=== PATIENT | female | born 1955 | race Caucasian/White ===

== ENCOUNTER → 2018-01-24 12:50 | Outpatient (CLI) | payer BC, SELFPAY ==
--- NOTE | 2018-01-24 12:54 | BI_ITS ---
MAMMOGRAPHY - BILATERAL SCREENING REASON FOR EXAM: Female, 62 years old. Routine annual screening examination. PERTINENT HISTORY: Sister with breast cancer. Aunt with breast cancer. TECHNIQUE: Digital bilateral breast jose juan (3D mammographic acquisition) in the CC and MLO projections. 2-D mediolateral oblique (MLO) and craniocaudad (CC) views of both breasts were obtained. CAD: Full Field Digital Mammography with Computer Added Detection was performed. COMPARISON: Comparison is made with prior study dated January 13, 2017 and January 05, 2016. FINDINGS: Breast Composition: The breasts are almost entirely fatty. There are no dominant masses or suspicious calcifications. No other significant abnormalities are identified. There has been no significant change since the prior study. BI/SCREENING MAMM (CAD), BILAT IMPRESSION: Stable bilateral screening mammogram. Yearly follow-up mammogram recommended. (A) ASSESSMENT CATEGORY: BIRADS Category 1: Negative. A letter regarding these results will be sent to the patient by the facility within 30 days. Approximately 10% of breast cancers are not detected by mammography. A normal mammogram should not delay biopsy of a clinically suspicious abnormality. [id number] Electronically Signed: Maverick Doe MD at 16:07 EDT Tel [phone], Service support ,
== END ==
PROVIDERS: Family Provider Internal Medicine; PCP Internal Medicine; Visit Provider Nurse Practitioner Primary Care
DX: Z12.31 Encounter for screening mammogram for malignant neoplasm of breast (principal)
CPT/HCPCS: 77063; 77067

== ENCOUNTER → 2018-09-01 08:51 | Outpatient (CLI) | payer BC, SELFPAY ==
--- NOTE | 2018-09-01 09:15 | MRI_ITS ---
STUDY: MRI BRAIN AND ORBITS WITH AND WITHOUT CONTRAST REASON FOR EXAM: Female, 62 years old. Vision changes and nystagmus TECHNIQUE: Standardized fat and water weighted pulse sequences were obtained in all 3 orthogonal planes, pre-and post contrast administration. 20 IV Dotarem was administered for the contrast portion of the examination. COMPARISON: None. FINDINGS: Right lens replacement. Normal bilateral optic nerve sheath complexes and optic nerves. Normal bilateral intraconal and extraconal spaces. Normal bilateral extraocular muscles. Normal optic chiasm and post-chiasmatic tracts. Normal sella turcica, pituitary gland, infundibular stalk, and hypothalamus. Normal bilateral cavernous sinuses. Normal tectal plate and pineal gland. Normal flow voids within the major intracranial circulation suggesting patency by spin echo criteria. Normal size of the ventricles and extra-axial spaces for the patient's age. There are multiple white matter hyperintensities, distributed throughout the deep white matter tracts of the cerebral hemispheres, consistent with moderate chronic white matter ischemic changes. Normal bilateral basal ganglia. Normal thalami. There is no extra-axial fluid accumulation. Normal midbrain, fanny and medulla. 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 Normal basal cisterns. IMPRESSION: No evidence of acute intraorbital pathology. No evidence of acute infarct or hemorrhage. Mild microangiopathic white matter disease. Electronically Signed: Terry Sullivan MD at 15:24 EDT Tel , Service support , STUDY: MRI BRAIN AND ORBITS WITH AND WITHOUT CONTRAST REASON FOR EXAM: Female, 62 years old. Vision changes and nystagmus TECHNIQUE: Standardized fat and water weighted pulse sequences were obtained in all 3 orthogonal planes, pre-and post contrast administration. 20 IV Dotarem was administered for the contrast portion of the examination. COMPARISON: None. FINDINGS: Right lens replacement. Normal bilateral optic nerve sheath complexes and optic nerves. Normal bilateral intraconal and extraconal spaces. Normal bilateral extraocular muscles. Normal optic chiasm and post-chiasmatic tracts. Normal sella turcica, pituitary gland, infundibular stalk, and hypothalamus. Normal bilateral cavernous sinuses. Normal tectal plate and pineal gland. Normal flow voids within the major intracranial circulation suggesting patency by spin echo criteria. Normal size of the ventricles and extra-axial spaces for the patient's age. There are multiple white matter hyperintensities, distributed throughout the deep white matter tracts of the cerebral hemispheres, consistent with moderate chronic white matter ischemic changes. Normal bilateral basal ganglia. Normal thalami. There is no extra-axial fluid accumulation. Normal midbrain, fanny and medulla. 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 Normal basal cisterns. MRI/Brain W/WO Contrast
[2018-09-01 09:25] LABS: CREATININE FINGERSTICK 1.2 mg/dL (0.55-1.02)
== END ==
PROVIDERS: Family Provider Internal Medicine; PCP Internal Medicine; Referring Provider Ophthalmology; Visit Provider Ophthalmology
DX: H55.00 Unspecified nystagmus (principal); H53.413 Scotoma involving central area, bilateral
CPT/HCPCS: 70553; A9575

== ENCOUNTER → 2018-11-21 06:32 | Outpatient (CLI) | payer BC, SELFPAY ==
--- NOTE | 2018-11-21 06:44 | MRI_ITS ---
STUDY: MRI ABDOMEN WITHOUT CONTRAST REASON FOR EXAM: Female, 62 years old. Follow-up ultrasound. Prior ultrasound imaging of 12/31/2014 revealed fatty infiltration of the liver and gallstones. Signs and symptoms or not reported. Prior ultrasound of 11/07/2018, suspected hypoechoic mass of the pancreatic tail worrisome for neoplasm. TECHNIQUE: Standardized fat and water weighted pulse sequences were obtained in all 3 orthogonal planes. MRCP with 3-D volume rendered reformatted images. COMPARISON: Ultrasound abdomen 11/07/2018, 12/31/2014. FINDINGS: Body wall soft tissues: No acute process. Chest: Limited evaluation, grossly clear lungs, no cardiomegaly, nondilated aorta and central pulmonary arteries. Hepatobiliary: Hepatomegaly, craniocaudal right liver 21.7 cm. On opposed phase imaging there is diffuse signal dropout throughout the liver consistent with hepatic steatosis. The gallbladder is surgically absent. Nondilated intrahepatic and extra hepatic biliary tree. Slender tapering of the common bile duct in the head of the pancreas to the sphincter without choledocholithiasis. The pancreatic duct joins the common bile duct at the major papilla, normal branching anatomy without pancreas divisum. Pancreas: Moderate fatty atrophy. No ductal ectasia. At the tip of the pancreatic tail, proximal to the splenic hilum, there is an ill-defined oval soft tissue focus, not cystic with a greatest dimension of 15 mm. Signal characteristics are similar to that of the pancreatic parenchyma. The absence of IV contrast limits further detail. Spleen: Normal. Splenule interposed between the medial margin of the spleen and the left adrenal gland. Adrenal glands: Normal. Kidneys: Normal bilateral kidneys, collecting systems, proximal ureters. Retroperitoneum: No mass or lymphadenopathy. Stomach: Normal. Small bowel and mesentery: Normal. Large bowel: Evaluated portions exhibit no acute process. Osseous structures: Mild lumbar levoscoliosis, multilevel lumbar degenerative disc disease most notable at L4-L5. Limited characterization. MRI/Abdomen without Contrast IMPRESSION: 1. Hepatic steatosis with hepatomegaly. 2. Benign splenule. 3. Prominent pancreatic atrophy. Ill-defined soft tissue focus at the tip of the pancreatic tail with a greatest dimension of 1.5 cm, adjacent to the splenic hilum. Differential considerations include normal pancreatic tissue, versus a small solid mass. The absence of IV contrast limits detail. The absence of diffusion-weighted imaging limits detail. A follow-up CT pancreas without and with IV contrast is suggested. Electronically Signed: aDvid Lane MD at 12:15 EDT Tel , Service support ,
== END ==
PROVIDERS: Family Provider Internal Medicine; PCP Internal Medicine; Referring Provider Internal Medicine; Visit Provider Internal Medicine
DX: K86.9 Disease of pancreas, unspecified (principal)
CPT/HCPCS: 74181

== ENCOUNTER → 2018-11-30 06:45 | Outpatient (CLI) | payer BC, SELFPAY ==
--- NOTE | 2018-11-30 06:47 | CT_ITS ---
STUDY: CT ABDOMEN WITH AND WITHOUT CONTRAST REASON FOR EXAM: Female, 62 years old. Pancreatic cyst versus lesion RADIATION DOSAGE (If Supplied By Facility): CTDIvol = ( 26.99 ) mGy, DLP = ( 1925.46 ) mGycm TECHNIQUE: Transaxial images were obtained pre and post I.V. administration of 100 IV Isovue 300, and oral contrast. Sagittal and coronal images were reconstructed. Individualized dose optimization techniques were used for this CT. COMPARISON: MRI abdomen November 21, 2018 FINDINGS: The visualized lung bases are unremarkable. The visualized portions of the heart are within normal limits. There is decreased hepatic attenuation. No hepatic lesions are present. Normal gallbladder and extrahepatic biliary system. The spleen is enlarged. A splenule is present. Normal pancreas. The adrenal glands are normal. Normal right kidney. Normal left kidney. Normal visualized stomach. Normal small intestine. Normal colon. The appendix is visualized and appears normal. Normal abdominal aorta. Normal inferior vena cava. Normal retroperitoneum. Normal abdominal wall. Normal osseous structures. CT/Abdomen W/WO IV Contrast IMPRESSION: Normal-appearing pancreas, with region described on comparison MRI not demonstrating unique features with respect to the rest of the pancreas. Splenomegaly. Fatty liver. Electronically Signed: Abner Garcia, at 17:58 EDT Tel , Service support ,
[2018-11-30 07:00] LABS: CREATININE FINGERSTICK 1.1 mg/dL (0.55-1.02)
== END ==
PROVIDERS: Family Provider Internal Medicine; PCP Internal Medicine; Referring Provider Internal Medicine; Visit Provider Internal Medicine
DX: K86.2 Cyst of pancreas (principal); K86.9 Disease of pancreas, unspecified
CPT/HCPCS: 74170; Q9967

== ENCOUNTER 2019-01-16 07:13 | Day surgery (SDC) | payer BC, SELFPAY ==
--- NOTE | 2018-12-18 08:55 | HP_ITS ---
Intake Vital Signs 12/18/18 Weight: 235 lb 1 oz 12/18/18 Blood Pressure 174/74 H 12/18/18 Blood Pressure Location Rt brachial 12/18/18 Respiratory Rate 20 H 12/18/18 Pulse Rate 60 12/18/18 Pulse Ox 98 Intake Visit Reasons: change in BM, had ct/mri, cscope/egd? Chief Complaint: change in bowel Disulfurizer Tender Required: No Is patient in pain?: No Allergies No Known Allergies Allergy (Verified 12/18/18 08:23) Medications lactobacillus combination no.8 3 billion cell capsule 3,000 mmu cells PO DAILY 12/18/18 [History Confirmed 12/18/18] lithium carbonate ER 450 mg tablet,extended release 450 mg PO BID 12/18/18 [History Confirmed 12/18/18] Is last menstrual period known: No Post menopausal: Yes Patient : No PFSH Medical History Depression (Acute) Hemorrhoids (Acute) Hepatic steatosis (Acute) Surgical History History of laparoscopic cholecystectomy (Acute ~2014) Family History Mother Diabetes Hypertension Depression Sister Breast cancer Father Cancer prostate Diabetes Hypertension Grandmother Diabetes Grandfather CVA (cerebral vascular accident) HPI HPI HPI: WOLFGANG BRAY, is a 63 F who presents to the office today for HPI HPI Surgical H&P: Yes HPI: WOLFGANG BRAY, is a 63 F who presents to the office today for screening colon cancer. Towards the end of October patient was having episodes of diarrhea she was having 2-3 loose bowel movements a day. She was having no abdominal pain she was not noticing any black tarry stools or bloody stools. She had an occult blood test which was negative. She had a plethora of lab studies as well as an MRI of her pancreas and a CAT scan of her pancreas which essentially was all negative. She states now that she is moving her bowels normally and she is not having any further problems with looser stools. She has never had a colonoscopy. ROS General General: No weight change, appetite, fatigue, colon cancer, breast cancer or weakness HEENT HEENT: No difficulty swallowing, eye injury, eye surgery, swollen glands or hoarseness Endo Endocrine: No thyroid disease, diabetes mellitus, thyroid cancer, Hair loss, heat intolerance or cold intolerance Cardio Cardiovascular: No murmur, pacemaker, heart disease, atrial fibrillation, high blood pressure, heart attack, heart stent, palpitations, shortness of breat with exertion or chest pain Resp Respiratory: No shortness of breath, No sleep apnea, No cough, No COPD, No asthma, No emphysema, No wheezing Gastro Gastrointestinal: No abdominal pain, No nausea or vomiting, No diarrhea, No constipation, No blood in stool, No acid reflux, Yes hemorrhoids, No ulcers, No gallbladder problem, No black,tarry stools Isai Hematologic: No blood thinners, No blood disorders, No bleeding, No anemia, No blood clots Neuro Neurologic: No weakness Exam Const General: no acute distress, well developed, well hydrated Orientation: oriented to person, oriented to place, oriented to time [facility] Head: normocephalic, atraumatic Ears: external ears normal Mouth: moist mucous membranes Eyes Sclera: sclerae normal Pupils: normal by confrontation Neck Neck: no lymphadenopathy noted Neck mass: No Thyroid: thyroid normal, symmetrical Chest Chest palpation & inspection: normal inspection of the chest Resp Effort & Inspection: normal respiratory effort Auscultation: clear to auscultation bilaterally Percussion: percussion normal Cardio Rate: regular rate Rhythm: regular rhythm Heart Sounds: no murmurs GI Inspection: obesity Palpation: soft, no hepatosplenomegaly, no masses, nontender Rectal Exam: other Other: Rectal exam deferred. Extrem General: normal to inspection, no clubbing, cyanosis or edema Assessment & Plan Problems 1. Screening for colon cancer Z12.11 Plan I have discussed the above with the patient. I have offered the patient colonoscopy for evaluation. I have explained the risks/benefits of the procedure and described the procedure. I have discussed the risks with the patient, including but not limited to: infection, bleeding, perforation of the GI tract requiring emergency surgery, inability to complete the procedure, injury to any internal organs, complications of anesthesia, etc. - the patient understands and agrees to proceed. I have answered all the patient's questions to the patient's satisfaction and the patient has no further questions. The patient has been given instructions for the colon cleansing preparation. We will do random colon bx. Coding Level of Care Code Off vis,new,level 3 Diagnoses Screening for colon cancer Z12.11 12/18/18 0856 <Electronically signed by Yogi woods MD> Date _ Yogi Olson MD I have re-examined the patient. There are no clinical changes since date of exam.
[2019-01-16 07:35] VITALS: BP 164/75; PULSE 65; RESP 16; TEMP 37.1; O2SAT 94; BMI 37.5
[2019-01-16] MEDS: Lactated Ringers 1,000 ML 100 ML IV (07:48)
--- NOTE | 2019-01-16 08:30 | COLBX_PTH ---
PATIENT: WOLFGANG BRAY LOC: EN U#:[id number] AGE/SX: 63/F ROOM: RE01/16/[address]: Dr. Yogi Olson MD : 1955 BED: DIS: 01/16/2019 SPEC #: [id number] RECD: 01/16/19 12:27 STATUS: BONNIE MASSIEL #: [id number] DANNY: 01/16/19 08:[address]: Yogi Olson DEPT: SURGICAL PATHOLOGY RECD BY: Sole Rush ENTERED: 01/16/19 14:01 SP TYPE: COLON BX OTHR DR: Dr. Caity Anaya MD Tissues: COLON BIOPSY Procedures: Surgery Specimen Level IV HEADER OPERATION: Colonoscopy (MAC) PRE-OP DIAGNOSIS: Screening TISSUE SUBMITTED: Random colonic biopsy MICROSCOPIC DIAGNOSIS Colon, random biopsy: Fragments of colonic mucosa, no pathologic diagnosis. VASQUEZ:srinivas 01/17/19 MICROSCOPIC DESCRIPTION Slides are reviewed. GROSS DESCRIPTION Received in fixative is one container labeled with the patient's name and designated random colonic biopsy. The specimen consists of multiple irregular fragments of light andre soft tissue that in aggregate measure 2.5 x 1 x 0.1 cm. The specimen is totally submitted in one cassette. / SJ:srinivas 01/16/19 TC:4 CPT: 44767
--- NOTE | 2019-01-16 08:55 | OP.ENDO_ITS ---
01/16/2019 Caity Anaya [address] [id number] Re : Colonoscopy procedure for Khadijah Jaffe Dear Dr. Anaya This procedure was performed on Wednesday, January 16, 2019. My impressions and recommendations are as follows: Impressions : - Anal fissure found on perianal exam. - Diverticulosis in the sigmoid colon. No specimens collected. - The entire examined colon is normal. Biopsied. - The examination was otherwise normal. Recommendations : - Discharge patient to home. - Resume previous diet. - Continue present medications. - Await pathology results. - Repeat colonoscopy in 10 years for screening purposes. - Return to my office in 1 week. My findings are described in the full procedure note, which is enclosed. If I can be of further assistance, please feel free to contact me at Doctor phone number(s): , Fax: [phone], Work: . Sincerely, MD Yogi Lunsford MD 01/16/2019 8:55:25 AM This report has been signed electronically.
[2019-01-16 08:57] VITALS: BP 111/79; BP 164/75; PULSE 56; RESP 16; TEMP 36.6; O2SAT 96
[2019-01-16 09:03] VITALS: BP 124/65; BP 164/75; PULSE 67; RESP 16; O2SAT 96
[2019-01-16 09:08] VITALS: BP 141/79; BP 164/75; PULSE 61; RESP 16; O2SAT 96
[2019-01-16 09:13] VITALS: BP 121/68; BP 164/75; PULSE 60; RESP 16; TEMP 36.8; O2SAT 96
[2019-01-16 09:37] VITALS: BP 164/75
== END 2019-01-16 09:54 | disposition home or self-care (01) ==
LOC: EN 07:14 → AC 07:15
PROVIDERS: Family Provider Internal Medicine; PCP Internal Medicine; Referring Provider Internal Medicine; Visit Provider Surgery
PROC: 0DJD8ZZ Inspection of Lower Intestinal Tract, Via Natural or Artificial Opening Endoscopic (ICD-10-PCS; CPT 45378; principal; 2019-01-16 08:25)
DX: Z12.11 Encounter for screening for malignant neoplasm of colon (principal); K60.2 Anal fissure, unspecified; K57.30 Diverticulosis of large intestine without perforation or abscess without bleeding; Z79.899 Other long term (current) drug therapy; F41.9 Anxiety disorder, unspecified; I10 Essential (primary) hypertension
CPT/HCPCS: 45380; 88305; J7120; J1610

== ENCOUNTER → 2019-02-15 07:15 | Outpatient (CLI) | payer BC, SELFPAY ==
[2019-01-16 07:35] VITALS: BMI 37.5
--- NOTE | 2019-02-15 07:17 | BI_ITS ---
MAMMOGRAPHY - BILATERAL SCREENING REASON FOR EXAM: Female, 63 years old. Routine annual screening examination. PERTINENT HISTORY: Sister with breast cancer. TECHNIQUE: Digital bilateral breast kaz (3D mammographic acquisition) in the CC and MLO projections. 2-D mediolateral oblique (MLO) and craniocaudad (CC) views of both breasts were obtained. CAD: Full Field Digital Mammography with Computer Added Detection was performed. COMPARISON: Comparison is made with prior study dated January 24, 2018 and January 13, 2017. FINDINGS: Breast Composition: The breasts are almost entirely fatty. There are no dominant masses or suspicious calcifications. No other significant abnormalities are identified. There has been no significant change since the prior study. BI/SCREEN MAMM (CAD) W/KAZ BILAT IMPRESSION: Stable bilateral screening mammogram. Yearly follow-up mammogram recommended. (A) ASSESSMENT CATEGORY: BIRADS Category 1: Negative. A letter regarding these results will be sent to the patient by the facility within 30 days. Approximately 10% of breast cancers are not detected by mammography. A normal mammogram should not delay biopsy of a clinically suspicious abnormality. [id number] Electronically Signed: Maverick Doe, at 9:04 EST , Service support ,
== END ==
PROVIDERS: Family Provider Internal Medicine; PCP Internal Medicine; Referring Provider Internal Medicine; Visit Provider Internal Medicine
DX: Z12.31 Encounter for screening mammogram for malignant neoplasm of breast (principal); Z80.3 Family history of malignant neoplasm of breast
CPT/HCPCS: 77063; 77067

== ENCOUNTER → 2020-02-25 07:39 | Outpatient (CLI) | payer BC, SELFPAY ==
--- NOTE | 2020-02-25 07:44 | BI_ITS ---
MAMMOGRAPHY - BILATERAL SCREENING REASON FOR EXAM: Female, 64 years old. Routine annual screening examination. PERTINENT HISTORY: Sister with breast cancer. Aunt with breast cancer. TECHNIQUE: Digital bilateral breast kaz (3D mammographic acquisition) in the CC and MLO projections. 2-D mediolateral oblique (MLO) and craniocaudad (CC) views of both breasts were obtained. CAD: Full Field Digital Mammography with Computer Added Detection was performed. COMPARISON: Comparison is made with prior study dated 02/15/2019 and 01/24/2018. FINDINGS: Breast Composition: The breasts are almost entirely fatty. There are no dominant masses or suspicious calcifications. Stable benign-appearing bilateral axillary lymph nodes. No other significant abnormalities are identified. There has been no significant change since the prior study. BI/SCREEN MAMM (CAD) W/KAZ BILAT IMPRESSION: Stable bilateral screening mammogram. Yearly follow-up mammogram recommended. (A) ASSESSMENT CATEGORY: BIRADS Category 2: Benign. A letter regarding these results will be sent to the patient by the facility within 30 days. Approximately 10% of breast cancers are not detected by mammography. A normal mammogram should not delay biopsy of a clinically suspicious abnormality. [id number] Electronically Signed: Maverick Doe, at 9:55 EST , Service support ,
== END ==
PROVIDERS: PCP Internal Medicine; Referring Provider Nurse Practitioner Primary Care; Visit Provider Nurse Practitioner Primary Care
DX: Z12.31 Encounter for screening mammogram for malignant neoplasm of breast (principal)
CPT/HCPCS: 77063; 77067

== ENCOUNTER → 2020-03-26 10:50 | Outpatient (CLI) | payer BC, SELFPAY ==
[2020-03-26 13:14] LABS: Hematocrit 37.7 % (37-47); Hemoglobin 11.8 g/dL (12.0-15.0); Mean Corp Hgb Conc 31.3 g/dL (32-36); Mean Corpuscular Hgb 31.2 pg (27.0-32.0); Mean Corpuscular Volume 99.7 fL (81-99); Platelet Count 250 K/mm3 (150-450); RBC Distribution Width CV 12.6 % (11.6-14.6); RBC Distribution Width SD 46.3 fl (35.1-43.9); Red Blood Count 3.78 M/mm3 (4.2-5.4); White Blood Count 7.4 K/mm3 (4.4-11.0)
[2020-03-26 13:22] LABS: Albumin, Serum 3.7 g/dL (3.2-5.0); BUN 24 mg/dL (7-18); BUN/Creat Ratio 15.6 RATIO (10-20); Calcium,Total 9.5 mg/dL (8.5-10.1); Chloride 107 mmol/L (98-107); Creatinine, Serum 1.54 mg/dL (0.55-1.02); EST Glomerular Filtration Rate 36 mL/min (>60); Est Glom Filt Rate - Afr Amer 44 mL/min (>60); Glucose 123 mg/dL (74-106); Phosphorus 3.2 mg/dL (2.5-4.9); Potassium 3.8 mmol/L (3.5-5.1); Sodium Level 140 mmol/L (136-145)
[2020-03-26 13:26] LABS: PTHIN 60.8 pg/mL (18.4-80.1)
[2020-03-26 13:28] LABS: Vitamin D,25 Hydroxy 43.5 ng/mL
[2020-03-30 20:48] LABS: Vitamin D 1,25-Dihydroxy 34.7 pg/mL (19.9-79.3)
== END ==
PROVIDERS: PCP Internal Medicine; Visit Provider Internal Medicine Nephrology
DX: N18.30 Chronic kidney disease, stage 3 unspecified (principal); E83.52 Hypercalcemia
CPT/HCPCS: 36415; 80069; 82306; 82652; 83970; 85027

== ENCOUNTER → 2020-04-29 10:00 | Outpatient (CLI) | payer BC, SELFPAY ==
[2020-04-29 12:50] LABS: Albumin, Serum 3.7 g/dL (3.2-5.0); BUN 20 mg/dL (7-18); BUN/Creat Ratio 13.2 RATIO (10-20); Calcium,Total 9.9 mg/dL (8.5-10.1); Chloride 108 mmol/L (98-107); Creatinine, Serum 1.52 mg/dL (0.55-1.02); EST Glomerular Filtration Rate 37 mL/min (>60); Est Glom Filt Rate - Afr Amer 44 mL/min (>60); Glucose 103 mg/dL (74-106); Phosphorus 3.4 mg/dL (2.5-4.9); Potassium 4.1 mmol/L (3.5-5.1); Sodium Level 140 mmol/L (136-145)
== END ==
PROVIDERS: PCP Internal Medicine; Visit Provider Internal Medicine Nephrology
DX: N18.30 Chronic kidney disease, stage 3 unspecified (principal)
CPT/HCPCS: 36415; 80069

== ENCOUNTER → 2020-06-30 10:37 | Outpatient (CLI) | payer BC, SELFPAY ==
[2020-06-30 12:32] LABS: Albumin, Serum 3.8 g/dL (3.2-5.0); BUN 22 mg/dL (7-18); BUN/Creat Ratio 14.3 RATIO (10-20); Calcium,Total 10.4 mg/dL (8.5-10.1); Chloride 106 mmol/L (98-107); Creatinine, Serum 1.54 mg/dL (0.55-1.02); EST Glomerular Filtration Rate 36 mL/min (>60); Est Glom Filt Rate - Afr Amer 44 mL/min (>60); Glucose 107 mg/dL (74-106); Phosphorus 3.1 mg/dL (2.5-4.9); Potassium 3.9 mmol/L (3.5-5.1); Sodium Level 139 mmol/L (136-145)
== END ==
PROVIDERS: PCP Internal Medicine; Visit Provider Internal Medicine Nephrology
DX: N18.30 Chronic kidney disease, stage 3 unspecified (principal)
CPT/HCPCS: 36415; 80069

== ENCOUNTER → 2020-12-01 09:54 | Outpatient (CLI) | payer BC, SELFPAY ==
[2020-12-01 13:18] LABS: Albumin, Serum 3.5 g/dL (3.2-5.0); BUN 24 mg/dL (7-18); BUN/Creat Ratio 16.6 RATIO (10-20); Calcium,Total 9.7 mg/dL (8.5-10.1); Chloride 111 mmol/L (98-107); Creatinine, Serum 1.45 mg/dL (0.55-1.02); EST Glomerular Filtration Rate 39 mL/min (>60); Est Glom Filt Rate - Afr Amer 47 mL/min (>60); Glucose 160 mg/dL (74-106); Phosphorus 2.5 mg/dL (2.5-4.9); Potassium 4.1 mmol/L (3.5-5.1); Sodium Level 142 mmol/L (136-145)
[2020-12-01 13:34] LABS: PTHIN 72.6 pg/mL (18.4-80.1)
== END ==
PROVIDERS: PCP Internal Medicine; Visit Provider Internal Medicine Nephrology
DX: N18.30 Chronic kidney disease, stage 3 unspecified (principal)
CPT/HCPCS: 36415; 80069; 83970

== ENCOUNTER 2020-12-14 00:21 | Emergency (ER) | payer BC, SELFPAY ==
[2020-12-14 00:22] VITALS: BP 195/98; PULSE 82; PULSE 93; RESP 18; TEMP 36.9; O2SAT 93; BMI 37.3
[2020-12-14] MEDS: DiphenhydrAMINE 50 MG/ML Syringe 25 MG IV (01:15)
[2020-12-14 01:25] LABS: Absolute Lymphocyte Count 2.38 X10^3/uL (0.83-4.51); Absolute Neutrophil Count 6.7 X10^3/uL (2.0-7.7); Basophil# 0.06 X10^3/uL; Basophil% 0.6 % (0-1); Eosinophil# 0.26 X10^3/uL; Eosinophils% 2.6 % (0-5); Hematocrit 41.4 % (37-47); Hemoglobin 13.1 g/dL (12.0-15.0); Lymphocyte # 2.38 X10^3/ul (0.83-4.51); Mean Corp Hgb Conc 31.6 g/dL (32-36); Mean Corpuscular Hgb 32.4 pg (27.0-32.0); Mean Corpuscular Volume 102.5 fL (81-99); Mean Platelet Vol. 9.3 fl (6.2-12.0); NRBC Flagged by Analyzer 0 % (0-5); Neutrophil # 6.69 X10^3/uL (2.7-7.7); Neutrophil % 67.6 % (47-70); Platelet Count 269 K/mm3 (150-450); RBC Distribution Width CV 12.6 % (11.6-14.6); RBC Distribution Width SD 47.8 fl (35.1-43.9); Red Blood Count 4.04 M/mm3 (4.2-5.4); White Blood Count 9.9 K/mm3 (4.4-11.0)
[2020-12-14 01:47] LABS: Anion Gap 5 (5-15); BUN 25 mg/dL (7-18); BUN/Creat Ratio 17.1 RATIO (10-20); Calcium,Total 10.3 mg/dL (8.5-10.1); Chloride 107 mmol/L (98-107); Creatinine, Serum 1.46 mg/dL (0.55-1.02); EST Glomerular Filtration Rate 38 mL/min (>60); Est Glom Filt Rate - Afr Amer 46 mL/min (>60); Estimated Creatinine Clearance 34.57 ml/min; Glucose 137 mg/dL (74-106); Potassium 3.4 mmol/L (3.5-5.1); Sodium Level 141 mmol/L (136-145)
--- NOTE | 2020-12-14 02:01 | EX.ED.DYSGE1 ---
HPI History of Present Illness Chief Complaint: General Illness Informant: patient and spouse/S.O. Onset/Context/Timing Onset: Weeks Current Severity: Moderate Maximum Severity: Moderate Narrative Narrative: Patient presents with a 7-day history of insomnia. She states that she lays down to try to sleep but has not been able to sleep in 7 days. She has tried Tylenol PM as well as an [id number] sleep syrup. She tried melatonin tonight and slept for only a brief time. Patient does admit to a recent medication change. She had previously been on lithium 300 mg 3 times daily. She was changed to twice daily dosing at 450 and 300. She states she did notice a sleep changes shortly after this medication adjustment. She denies caffeine intake. [facility] Medical History Depression Hemorrhoids Hepatic steatosis Home Medications lactobacillus combination no.8 3 billion cell capsule 3,000 mmu cells PO DAILY 12/18/18 [History Last Taken 01/15/19] amlodipine 5 mg PO DAILY 12/14/20 [History Last Taken Unknown] aripiprazole [Abilify] 10 mg PO DAILY 12/14/20 [History Last Taken Unknown] lithium carbonate 300 mg PO TID 12/14/20 [History Last Taken Unknown] omeprazole 20 mg PO QODAY 12/14/20 [History Last Taken Unknown] Allergy/AdvReac Type Severity Reaction Status Date / Time No Known Allergies Allergy Verified 01/24/19 15:29 Family History Mother Diabetes Hypertension Depression Sister Breast cancer Father Cancer prostate Diabetes Hypertension Grandmother Diabetes Grandfather CVA (cerebral vascular accident) Surgical History History of colonoscopy (~01/2019) History of laparoscopic cholecystectomy (~2014) Social History Smoking Status: Former smoker ROS ROS ED Constitutional Constitutional ED: Denies chills or fever(s) Eyes Eyes: Denies change in vision ENT ENT ED: Denies sore throat Cardiovascular Cardiovascular: Denies chest pain Respiratory/Chest Respiratory/Chest: Denies cough or dyspnea Gastrointestinal Gastrointestinal: Denies abdominal pain, diarrhea, nausea or vomiting Genitourinary Genitourinary ED: Denies dysuria Musculoskeletal Musculoskeletal: Denies back pain Integumentary Denies rash Neurologic Neurologic: Denies headache(s) or weakness Allergic/Immunologic Allergic/Immunologic ED: Denies urticaria EXAM Physical Exam Const Vital Signs: 12/14/20 00:22 12/14/20 03:06 Temperature 98.4 F Temperature Source Temporal Pulse Rate 82 65 Respiratory Rate 18 18 Blood Pressure 195/98 H 136/67 H Blood Pressure Mean 130 90 Pulse Ox 93 98 Oxygen Delivery Method Room Air Room Air Positive well nourished and well developed General Appearance ED: well developed HEENT Reports normocephalic and head/scalp atraumatic Eyes PERRL and EOMs intact bilaterally Neck supple Chest Wall inspection of chest normal and palpation of chest normal Resp normal respiratory effort and clear to auscultation bilaterally Cardio regular rate and regular rhythm GI normal to inspection, nondistended, normoactive bowel sounds Palpation: soft Extremity normal to inspection Neuro oriented x3 and no sensory deficits noted Sensorium / Orientation: alert Motor Exam: strength 5/5 throughout Psych Mood & Affect: anxious Skin no rashes or lesions noted MDM MDM MDM Narrative Medical decision making narrative: Lab work including lithium level are obtained. Patient was initially given 25 mg of IV Benadryl. Lab Data Attestation: I reviewed the patient's lab results. Labs: Laboratory Results - last 24 hr 12/14/20 12/14/20 12/14/20 01:18 01:18 01:18 WBC 9.9 RBC 4.04 L Hgb 13.1 Hct 41.4 MCV 102.5 H MCH 32.4 H MCHC 31.6 L RDW Std Deviation 47.8 H RDW Coeff of Jai 12.6 Plt Count 269 MPV 9.3 Immature Gran % (Auto) 0.200 Neut % (Auto) 67.6 Lymph % (Auto) 24.0 Hooker % (Auto) 5.0 Eos % (Auto) 2.6 Baso % (Auto) 0.6 Absolute Neuts (auto) 6.7 Absolute Lymphs (auto) 2.38 Nucleated RBC % 0 Sodium 141 Potassium 3.4 L Chloride 107 Carbon Dioxide 29.0 Anion Gap 5 BUN 25 H Creatinine 1.46 H Estim Creat Clear Calc 34.57 Est GFR (MDRD) Af Amer 46 L Est GFR (MDRD) Non-Af 38 L BUN/Creatinine Ratio 17.1 Glucose 137 H Calcium 10.3 H Tobin 1.20 Treatment and Re-Evaluation Comments:: Lab work is largely unremarkable. Potassium is slightly low. Tobin is 1.2 which is typically where her lithium level is. She now tells me that she had switched back to the 3 times a day dosing on her lithium 4 days ago. Patient was given 1 mg of IV Ativan. On repeat evaluation she is sleeping comfortably. states that she slept for the last half hour. O2 sat is 94%. Patient is awoken and would prefer to go home and sleep. We will discharge her at this time with return instructions provided. Discharge Plan Triage Chief Complaint: General Illness ED Provider: Karla Schultz Dx/Rx/DC Orders Clinical Impression: Insomnia Instructions: ED Insomnia Prescriptions: No Action Adult Probiotic 3 billion cell capsule 3,000 mmu cells PO DAILY RF: 0 amlodipine 2.5 mg tablet 5 mg PO DAILY RF: 0 omeprazole 20 mg capsule,delayed release(DR/EC) 20 mg PO QODAY RF: 0 lithium carbonate 300 mg tablet 300 mg PO TID RF: 0 aripiprazole [Abilify] 10 mg tablet 10 mg PO DAILY RF: 0 Primary Care Provider: Robert Lema NP Referrals: Robert Lema NP, [facility] [Primary Care Provider] - 3-5 Days if not improving Disposition Disposition: Home, Self Care
[2020-12-14 03:06] VITALS: BP 136/67; PULSE 65; RESP 18; O2SAT 98
[2020-12-14] MEDS: LORazepam 2 MG/ML Syringe 1 MG IV (03:30)
[2020-12-14 04:12] VITALS: RESP 14
== END 2020-12-14 04:17 | disposition home or self-care (01) ==
PROVIDERS: Emergency Provider Emergency Medicine; PCP Nurse Practitioner Primary Care
DX: G47.00 Insomnia, unspecified (principal); F32.9 Major depressive disorder, single episode, unspecified; K76.0 Fatty (change of) liver, not elsewhere classified; Z79.899 Other long term (current) drug therapy; Z87.891 Personal history of nicotine dependence
CPT/HCPCS: 80048; 80178; 85025; 96374; 96375; 99283; A4216

== ENCOUNTER 2020-12-19 18:28 | Emergency (ER) | payer BC, SELFPAY ==
[2020-12-19 18:29] VITALS: BP 179/81; PULSE 78; RESP 18; TEMP 36.1; O2SAT 99; BMI 36.6
--- NOTE | 2020-12-19 20:34 | EDS_ITS ---
HPI History of Present Illness Chief Complaint: Mental Status Change Informant: patient Onset/Context/Timing Onset: Days (4-5) Context: Gradual Onset Timing: Continuous Quality: insomnia Current Severity: Severe Maximum Severity: Severe Worsened by: n/a Relieved by: Ativan IM but not tablets Associated Symptoms Associated Symptoms: none; just feels groggy and sleep deprived Narrative Narrative: Patient has had insomnia all week, and she is grasping at straws to try to get sleep. She states she was try melatonin 3 mg before coming here earlier in the week, she was given Ativan in the ER which did help her get to sleep but she only slept for several hours at home and then was unable. She has had no symptoms of alea, she has bipolar disorder and is treated for that with lithium. She had labs several days ago that showed stable chemistry panel with a lithium level that was within normal limits. Her doctor prescribed her Ativan tablets but she states it is not helping. She also increased her melatonin to 6 mg. She states she was able to take a couple of short naps but she is not able to sleep for any significant amount of time. [facility] Medical History Bipolar disorder Depression Hemorrhoids Hepatic steatosis Home Medications lactobacillus combination no.8 3 billion cell capsule 3,000 mmu cells PO DAILY 12/18/18 [History Last Taken 01/15/19] amlodipine 5 mg PO DAILY 12/14/20 [History Last Taken Unknown] lithium carbonate 300 mg PO TID 12/14/20 [History Last Taken Unknown] omeprazole 20 mg PO QODAY 12/14/20 [History Last Taken Unknown] lorazepam 1 mg PO QHS 12/19/20 [History Last Taken Unknown] melatonin 6 mg PO DAILY 12/19/20 [History Last Taken Unknown] zolpidem 5 mg PO QHS PRN #3 tab 12/19/20 [Rx Last Taken Unknown] Allergy/AdvReac Type Severity Reaction Status Date / Time No Known Allergies Allergy Verified 12/19/20 18:29 Family History Mother Diabetes Hypertension Depression Sister Breast cancer Father Cancer prostate Diabetes Hypertension Grandmother Diabetes Grandfather CVA (cerebral vascular accident) Surgical History History of colonoscopy (~01/2019) History of laparoscopic cholecystectomy (~2014) Social History Smoking Status: Former smoker ROS ROS ED Constitutional Constitutional ED: Reports other Details: Insomnia ; Denies chills or fever(s) Eyes Eyes: Denies change in vision or diplopia ENT ENT ED: Denies rhinorrhea or sore throat Cardiovascular Cardiovascular: Denies chest pain or palpitations Respiratory/Chest Respiratory/Chest: Denies cough or dyspnea Gastrointestinal Gastrointestinal: Denies abdominal pain, diarrhea, nausea or vomiting Genitourinary Genitourinary ED: Denies dysuria or hematuria Musculoskeletal Musculoskeletal: Denies back pain or neck pain Integumentary Denies abscess or rash Neurologic Neurologic: Denies headache(s), paresthesias or weakness Psychiatric Psychiatric: Denies anxiety or suicidal thoughts EXAM Physical Exam Const Vital Signs: 12/19/20 18:29 Temperature 96.9 F L Temperature Source Temporal Pulse Rate 78 Respiratory Rate 18 Blood Pressure 179/81 H Blood Pressure Mean 113 Pulse Ox 99 Oxygen Delivery Method Room Air Positive well nourished and well developed General Appearance ED: well developed and NAD HEENT Reports moist mucous membranes normocephalic and atraumatic Eyes PERRL and EOMs intact bilaterally Neck full ROM and supple Resp normal respiratory effort and clear to auscultation bilaterally Cardio regular rate, regular rhythm and no murmurs GI non-tender and non-distended Auscultation: normoactive bowel sounds Palpation: soft Back/Spine no CVA tenderness General Back: other FROM Extremity normal to inspection General Extremety ED: Negative for edema, pulses abnormal or tenderness General Extremity: Negative for edema or pulses abnormal Neuro oriented x3, CN's II-XII intact bilaterally and no sensory deficits noted Sensorium / Orientation: awake and alert Motor Exam: strength 5/5 throughout Skin no rashes or lesions noted and no wounds MDM MDM MDM Narrative Medical decision making narrative: I do not think she needs any other emergent work-up here. She was given Ativan 0.5 mg IM as well as an Ambien 5 mg, her is here to take her home and a prescription for a couple more Ambien to try at home over the weekend until she can follow-up with her doctor. She is comfortable with that plan. Discharge Plan Triage Chief Complaint: Mental Status Change ED Provider: Naif Cochran Dx/Rx/DC Orders Clinical Impression: Insomnia Instructions: ED Insomnia Prescriptions: New zolpidem 5 mg tablet 5 mg PO QHS PRN (Reason: insomnia) Qty: 3 RF: 0 No Action Adult Probiotic 3 billion cell capsule 3,000 mmu cells PO DAILY RF: 0 amlodipine 2.5 mg tablet 5 mg PO DAILY RF: 0 omeprazole 20 mg capsule,delayed release(DR/EC) 20 mg PO QODAY RF: 0 lithium carbonate 300 mg tablet 300 mg PO TID RF: 0 melatonin 3 mg Tablet 6 mg PO DAILY RF: 0 lorazepam 1 mg tablet 1 mg PO QHS RF: 0 Primary Care Provider: Care Physician,No Primary Referrals: Con Fuller MD [STAFF PHYSICIAN] - 3-5 Days Care Physician,No Primary [Primary Care Provider] - Disposition Disposition: Home, Self Care
[2020-12-19] MEDS: LORazepam 2 MG/ML Syringe 0.5 MG IM (20:43)
[2020-12-19] MEDS: Zolpidem Tartrate 5 MG Tablet PO (20:54)
== END 2020-12-19 20:55 | disposition home or self-care (01) ==
PROVIDERS: Emergency Provider Emergency Medicine
DX: G47.00 Insomnia, unspecified (principal); F31.9 Bipolar disorder, unspecified; Z79.899 Other long term (current) drug therapy; Z87.891 Personal history of nicotine dependence
CPT/HCPCS: 96374; 99283

== ENCOUNTER → 2021-02-26 09:12 | Outpatient (CLI) | payer BC, SELFPAY ==
--- NOTE | 2021-02-26 09:17 | BI_ITS ---
MAMMOGRAPHY - BILATERAL SCREENING REASON FOR EXAM: Female, 65 years old. Routine annual screening examination. PERTINENT HISTORY: Sister with breast cancer. Aunt with breast cancer. TECHNIQUE: Digital bilateral breast kaz (3D mammographic acquisition) in the CC and MLO projections. 2-D mediolateral oblique (MLO) and craniocaudad (CC) views of both breasts were obtained. CAD: Full Field Digital Mammography with Computer Added Detection was performed. COMPARISON: Comparison is made with prior study 02/25/2020 and 02/15/2019. FINDINGS: Breast Composition: The breasts are almost entirely fatty. There are no dominant masses or suspicious calcifications. Stable benign-appearing bilateral axillary lymph nodes. No other significant abnormalities are identified. There has been no significant change since the prior study. BI/SCRN MAMM (CAD)W/KAZ BILAT IMPRESSION: Stable bilateral screening mammogram. Yearly follow-up mammogram recommended. (A) ASSESSMENT CATEGORY: BIRADS Category 2: Benign. A letter regarding these results will be sent to the patient by the facility within 30 days. Approximately 10% of breast cancers are not detected by mammography. A normal mammogram should not delay biopsy of a clinically suspicious abnormality. [id number] Electronically Signed: Maverick Doe MD at 9:53 EST , Service support ,
== END ==
PROVIDERS: PCP Internal Medicine; Referring Provider Internal Medicine; Visit Provider Internal Medicine
DX: Z12.31 Encounter for screening mammogram for malignant neoplasm of breast (principal); Z80.3 Family history of malignant neoplasm of breast
CPT/HCPCS: 77063; 77067

== ENCOUNTER 2021-07-14 09:08 | Outpatient (CLI) | payer BC, SELFPAY ==
[2021-07-14 12:34] LABS: Albumin, Serum 3.6 g/dL (3.2-5.0); BUN 19 mg/dL (7-18); BUN/Creat Ratio 12.8 RATIO (10-20); Calcium,Total 9.7 mg/dL (8.5-10.1); Chloride 109 mmol/L (98-107); Creatinine, Serum 1.48 mg/dL (0.55-1.02); EST Glomerular Filtration Rate 38 mL/min (>60); Est Glom Filt Rate - Afr Amer 45 mL/min (>60); Glucose 163 mg/dL (74-106); Phosphorus 2.8 mg/dL (2.5-4.9); Potassium 3.8 mmol/L (3.5-5.1); Sodium Level 140 mmol/L (136-145)
[2021-07-14 12:55] LABS: PTHIN 62.7 pg/mL (18.4-80.1)
== END 2021-07-14 23:59 | disposition home or self-care (01) ==
LOC: POLAB3 09:09
PROVIDERS: PCP Internal Medicine; Visit Provider Internal Medicine Nephrology
DX: N18.30 Chronic kidney disease, stage 3 unspecified (principal)
CPT/HCPCS: 36415; 80069; 83970

== ENCOUNTER → 2022-03-24 | Outpatient (CLI) | payer BC, SELFPAY ==
--- NOTE | 2022-03-24 16:00 | BI_ITS ---
MAMMOGRAPHY - BILATERAL SCREENING REASON FOR EXAM: Female, 66 years old. Routine annual screening examination. PERTINENT HISTORY: Sister with breast cancer. Aunt with breast cancer. TECHNIQUE: Digital bilateral breast kaz (3D mammographic acquisition) in the CC and MLO projections. 2-D mediolateral oblique (MLO) and craniocaudad (CC) views of both breasts were obtained. CAD: Full Field Digital Mammography with Computer Added Detection was performed. COMPARISON: Comparison is made with prior study dated 02/26/2021 and 02/25/2020. FINDINGS: Breast Composition: The breasts are almost entirely fatty. There are no dominant masses or suspicious calcifications. Stable small benign-appearing bilateral axillary lymph nodes. No other significant abnormalities are identified. There has been no significant change since the prior study. BI/SCRN MAMM (CAD)W/KAZ BILAT IMPRESSION: Stable bilateral screening mammogram. Yearly follow-up mammogram recommended. (A) ASSESSMENT CATEGORY: BIRADS Category 2: Benign. A letter regarding these results will be sent to the patient by the facility within 30 days. Approximately 10% of breast cancers are not detected by mammography. A normal mammogram should not delay biopsy of a clinically suspicious abnormality. [id number] Electronically Signed: Maverick Doe MD at 12:17 EST ,
== END | disposition home or self-care (01) ==
LOC: OPBD 15:58
PROVIDERS: PCP Internal Medicine; Visit Provider Nurse Practitioner
DX: Z12.31 Encounter for screening mammogram for malignant neoplasm of breast (principal); Z80.3 Family history of malignant neoplasm of breast
CPT/HCPCS: 77063; 77067

== ENCOUNTER 2022-05-02 13:57 | Outpatient (RCR) | payer BC, SELFPAY | END 2022-05-10 23:59 | LOC: DC 13:57 | PROVIDERS: PCP Internal Medicine; Visit Provider Internal Medicine | DX: E11.22 Type 2 diabetes mellitus with diabetic chronic kidney disease (principal); N18.9 Chronic kidney disease, unspecified; Z71.3 Dietary counseling and surveillance | CPT/HCPCS: 97802 ==

== ENCOUNTER 2022-06-02 13:30 | Outpatient (RCR) | payer BC, SELFPAY | END 2022-06-07 23:59 | LOC: DC 13:30 | PROVIDERS: PCP Internal Medicine; Visit Provider Internal Medicine | DX: E11.22 Type 2 diabetes mellitus with diabetic chronic kidney disease (principal); N18.30 Chronic kidney disease, stage 3 unspecified; Z71.3 Dietary counseling and surveillance | CPT/HCPCS: 97803 ==

== ENCOUNTER → 2022-11-21 | Outpatient (CLI) | payer BC, SELFPAY ==
[2022-11-21 13:23] LABS: Albumin, Serum 3.6 g/dL (3.2-5.0); BUN 25 mg/dL (7-18); Calcium,Total 9.5 mg/dL (8.5-10.1); Chloride 110 mmol/L (98-107); Creatinine, Serum 1.67 mg/dL (0.55-1.02); EST Glomerular Filtration Rate 33 mL/min (>60); Est Glom Filt Rate - Afr Amer 39 mL/min (>60); Glucose 199 mg/dL (74-106); Phosphorus 3.6 mg/dL (2.5-4.9); Potassium 4.2 mmol/L (3.5-5.1); Sodium Level 140 mmol/L (136-145)
== END | disposition home or self-care (01) ==
LOC: POLAB3 09:38
PROVIDERS: PCP Internal Medicine; Visit Provider Internal Medicine Nephrology
DX: N18.32 Chronic kidney disease, stage 3b (principal)
CPT/HCPCS: 36415; 80069

== ENCOUNTER → 2023-04-26 | Outpatient (CLI) | payer BC, SELFPAY ==
--- NOTE | 2023-04-26 09:10 | BI_ITS ---
MAMMOGRAPHY - BILATERAL SCREENING REASON FOR EXAM: Female, 67 years old. Routine annual screening examination. PERTINENT HISTORY: Sister with breast cancer. Aunt with breast cancer. TECHNIQUE: Digital bilateral breast kaz (3D mammographic acquisition) in the CC and MLO projections. 2-D mediolateral oblique (MLO) and craniocaudad (CC) views of both breasts were obtained. CAD: Full Field Digital Mammography with Computer Added Detection was performed. COMPARISON: Comparison is made with prior study dated March 24, 2022 and February 26, 2021. FINDINGS: Breast Composition: The breasts are almost entirely fatty. There are no dominant masses or suspicious calcifications. Stable fat-containing right axillary lymph nodes. No other significant abnormalities are identified. There has been no significant change since the prior study. BI/SCRN MAMM (CAD)W/KAZ BILAT IMPRESSION: Stable bilateral screening mammogram. Yearly follow-up mammogram recommended. (A) ASSESSMENT CATEGORY: BIRADS Category 2: Benign. A letter regarding these results will be sent to the patient by the facility within 30 days. Approximately 10% of breast cancers are not detected by mammography. A normal mammogram should not delay biopsy of a clinically suspicious abnormality. [id number] Electronically Signed: Maverick Doe MD at 8:31 EST ,
== END | disposition home or self-care (01) ==
LOC: OPBI 09:09
PROVIDERS: PCP Internal Medicine; Referring Provider Nurse Practitioner; Visit Provider Nurse Practitioner
DX: Z12.31 Encounter for screening mammogram for malignant neoplasm of breast (principal); Z80.3 Family history of malignant neoplasm of breast
CPT/HCPCS: 77063; 77067

== ENCOUNTER → 2024-02-14 | Outpatient (CLI) | payer BC, SELFPAY ==
--- NOTE | 2024-02-14 12:45 | NEURO ---
NCS and/or EMG Patient Report Ordering Doctor: Rodger Urrutia DATE OF SERVICE: 02/14/24 Khadijah presents for electrodiagnostic testing of the left upper limb. She reports numbness and tingling in the left hand and forearm. Electrodiagnostic findings: Left median motor nerve demonstrates prolonged latency with reduced amplitude and reduced conduction velocity. Normal left ulnar motor response. Prolonged left median F?wave. Needle EMG testing was performed in the left upper limb. All muscles tested showed no evidence of denervation with normal motor unit action potentials. Electrodiagnostic impression: This is an abnormal study in the left upper limb. 1. Electrodiagnostic findings suggestive of left-sided median mononeuropathy. This is consistent with a severe left carpal tunnel syndrome Were 2 no electrodiagnostic evidence is noted for cervical radiculopathy. Multi Select Codes Neurology Neurology Interp Codes: 25383-99 Musc test done w/n test comp (interp) (1) and 45850-58 Nrv cndj tst 5-6 studies (interp)
== END | disposition home or self-care (01) ==
LOC: PSN 10:26
PROVIDERS: PCP Nurse Practitioner; Referring Provider Physician Assistant; Visit Provider Physician Assistant
DX: R20.2 Paresthesia of skin (principal)
CPT/HCPCS: 95886; 95909

== ENCOUNTER → 2024-05-07 | Outpatient (CLI) | payer MEDICARE, BC, SELFPAY ==
--- NOTE | 2024-05-07 07:44 | BI_ITS ---
PROCEDURE: SCRN MAMM (CAD)W/KAZ BILAT REASON FOR EXAM: F, Age 68 y/o, sister with breast cancer. Aunt with breast cancer. TECHNIQUE: Bilateral screening digital breast tomosynthesis with 2D and 3D images. Computer aided detection. COMPARISON: Prior exam(s) dating back to April 26, 2023.. FINDINGS: There are scattered areas of fibroglandular density. No suspicious masses, areas of developing architectural distortion, or suspicious calcifications. St able bilateral fat containing axillary lymph nodes. BI/SCRN MAMM (CAD)W/KAZ BILAT IMPRESSION: BI-RADS 2: BENIGN. RECOMMEND ANNUAL MAMMOGRAPHIC SCREENING. Follow-up code: Routine Follow-up The patient will be notified of the results by letter. Reading Location: [place] [id number]
== END | disposition home or self-care (01) ==
PROVIDERS: PCP Nurse Practitioner; Referring Provider Internal Medicine; Visit Provider Internal Medicine
DX: Z12.31 Encounter for screening mammogram for malignant neoplasm of breast (principal)
CPT/HCPCS: 77063; 77067

== ENCOUNTER 2024-10-28 08:01 | Emergency (ER) | payer MEDICARE, BC, SELFPAY ==
[2024-10-28 08:02] VITALS: BP 132/76; PULSE 71; RESP 16; TEMP 36.7; O2SAT 98; BMI 35.5
--- NOTE | 2024-10-28 08:32 | EDS_ITS ---
HPI HPI - GI History of Present Illness Chief Complaint: Diarrhea Informant: patient Narrative Narrative: Diarrhea nonbloody for the past month. She saw her PCP stool studies sent negative for C. difficile. She states at that time was on antibiotics 3 weeks prior for tooth infection. Since then daily diarrhea especially when she takes oral intake. Last time was yesterday when she ate scrambled eggs. She went to urgent care yesterday they did not know what to do. She was referred to gastroenterology by her PCP however appointments out. Only abdominal surgery is cholecystectomy. History of diabetes and chronic kidney disease. She has been trying to keep up with fluids. Today felt weaker. No decreased urine output. No nausea or vomiting. No fevers. No abdominal pain. [facility] Medical History Bipolar disorder Hemorrhoids Hepatic steatosis Depression Home Medications ?Medication ?Instructions ?Recorded ?Last Taken ?Type lactobacillus combination no.8 3 3,000 mmu cells PO DA MATEO 12/18/18 01/15/19 History billion cell capsule (Adult Probiotic) amlodipine 2.5 mg tablet 5 mg PO DAILY 12/14/20 Unkno wn History lithium carbonate 300 mg tablet 300 mg PO TID 12/14/20 Unknown History omeprazole 20 mg capsule,delayed 20 mg PO QODAY Unknown History release lorazepam 1 mg tablet 1 mg PO QHS 12/19/20 Unknown History melatonin 3 mg tablet 6 mg PO DAILY 12/19/20 Unkno wn History zolpidem 5 mg tablet 5 mg PO QHS PRN insomnia #3 tabs 12/19/20 Unknown Rx Allergy/AdvReac Type Severity Reaction Status Date / Time No Known Allergies Allergy Verified 10/28/24 08:04 Family History Mother Diabetes Hypertension Depression Sister Breast cancer Father Cancer prostate Diabetes Hypertension Grandmother Diabetes Grandfather CVA (cerebral vascular accident) Surgical History History of colonoscopy (~01/2019) History of laparoscopic cholecystectomy (~2014) Social History Smoking Status: Former smoker ROS ROS ED Constitutional Constitutional ED: Denies chills, fever(s) or sweats ENT ENT ED: Denies sore throat Cardiovascular Cardiovascular: Denies chest pain, leg edema, palpitations or racing heartbeat Respiratory/Chest Respiratory/Chest: Denies cough, dyspnea or dyspnea on exertion Gastrointestinal Gastrointestinal: Reports diarrhea; Denies abdominal pain, nausea or vomiting Genitourinary Genitourinary ED: Denies dysuria, hematuria or urinary frequency Musculoskeletal Musculoskeletal: Denies back pain, extremity pain or neck pain Integumentary Denies rash or wounds Neurologic Neurologic: Reports weakness; Denies headache(s) or paresthesias EXAM Physical Exam Const Vital Signs: 10/28/24 08:02 Temperature 98.1 F Temperature Source Oral Pulse Rate 71 Respiratory Rate 16 Blood Pressure 132/76 H Blood Pressure Mean 94 Pulse Ox 98 Oxygen Delivery Method Room Air Positive well nourished and well developed General Appearance ED: well developed and NAD HEENT Reports dry mucous membranes normocephalic and atraumatic Mouth ED: Yes dry mucous membranes Mouth: dry mucous membranes Eyes General Eye ED: Yes normal appearance of both eyes Neck full ROM Chest Wall Chest: Negative for tenderness Resp normal respiratory effort and normal air movement Effort and Inspection: symmetric chest movement; Negative for respiratory distr ess Cardio regular rate, regular rhythm and no murmurs Peripheral Pulses: pulses 2+ throughout GI normal to inspection, nondistended, normoactive bowel sounds and non-tender GI Narrative: Negative left lower quadrant pain no Grajeda's or McBurney's tenderness. Palpation: Negative for guarding or rebound tenderness present Extremity normal to inspection General Extremety ED: Negative for edema or tenderness General Extremity: Negative for edema Neuro oriented x3 and no sensory deficits noted Sensorium / Orientation: awake and alert Skin no rashes or lesions noted and no wounds MDM MDM MDM Narrative Medical decision making narrative: Interventions / MDM: Differential diagnosis: Dehydration, electrolyte abnormalities, Diagnosis considered but do not suspect: No clinical colitis My EKG interpretation: N/A Imaging independently reviewed and interpreted by myself: N/A External documents reviewed: N/A Test considered but not ordered:N/A ED course: Dry mucosal membranes are vital stable. IV established for labs and fluids without any electrolyte abnormalities. Will reorder stool studies. Re-evaluation: stable Disposition discussed with patient/family/significant other: Case discussed with consulting clinician: N/A This note was generated with Appistryation software. It may contain incorrect words, spelling, and punctuation that were not noted in checking the note before signing. Discharge Plan Triage Chief Complaint: Diarrhea ED Provider: Lex Joshua Dx/Rx/DC Orders Prescriptions: No Action Adult Probiotic 3 billion cell capsule 3,000 mmu cells PO DAILY amlodipine 2.5 mg tablet 5 mg PO DAILY Patient Comments: TAKE 1 TABLET BY MOUTH EVERY DAY omeprazole 20 mg capsule,delayed release(DR/EC) 20 mg PO QODAY Patient Comments: TAKE 1 2 CAPSULES BY MOUTH DAILY BEFORE BREAKFAST. lithium carbonate 300 mg tablet 300 mg PO TID Patient Comments: TAKE 1 TABLET BY MOUTH THREE TIMES A DAY melatonin 3 mg Tablet 6 mg PO DAILY lorazepam 1 mg tablet 1 mg PO QHS Patient Comments: TAKE 1 TABLET BY MOUTH AT BEDTIME NEEDED FOR ANXIETY FOR UP TO 7 DAYS. zolpidem 5 mg tablet 5 mg PO QHS PRN (Reason: insomnia) Qty: 3 0RF Primary Care Provider: Toma Kim NP Referrals: Toma Kim NP, PASSENGER LOCOMOTIVE ENGINEER-C [Primary Care Provider] - Print Language: Cape Verdean
--- NOTE | 2024-10-28 08:32 | ED.VIS.GI ---
HPI HPI - GI History of Present Illness Chief Complaint: Diarrhea Informant: patient Narrative Narrative: Diarrhea nonbloody for the past month. She saw her PCP stool studies sent negative for C. difficile. She states at that time was on antibiotics 3 weeks prior for tooth infection. Since then daily diarrhea especially when she takes oral intake. Last time was yesterday when she ate scrambled eggs. She went to urgent care yesterday they did not know what to do. She was referred to gastroenterology by her PCP however appointments out. Only abdominal surgery is cholecystectomy. History of diabetes and chronic kidney disease. She has been trying to keep up with fluids. Today felt weaker. No decreased urine output. No nausea or vomiting. No fevers. No abdominal pain. [facility] Medical History Bipolar disorder Hemorrhoids Hepatic steatosis Depression Home Medications ?Medication ?Instructions ?Recorded ?Last Taken ?Type amlodipine 5 mg tablet 5 mg PO BID 10/28/24 10/27/24 History atorvastatin 20 mg tablet 20 mg PO QHS cholesterol 10/28/24 10/27/24 History bumetanide 1 mg tablet 1 mg PO DAILY 10/28/24 10/27/24 History carvedilol 3.125 mg tablet 3.125 mg PO BID 10/28/24 10/27/24 History divalproex 500 mg tablet,delayed 1,000 mg PO QHS 10/28/24 10/27/24 History release glipizide 5 mg tablet 5 mg PO DAILY 10/28/24 10/27/24 History quetiapine 50 mg tablet 50 mg PO QHS 10/28/24 10/27/24 History Allergy/AdvReac Type Severity Reaction Status Date / Time No Known Allergies Allergy Verified 10/28/24 08:04 Family History Mother Diabetes Hypertension Depression Sister Breast cancer Father Cancer prostate Diabetes Hypertension Grandmother Diabetes Grandfather CVA (cerebral vascular accident) Surgical History History of colonoscopy (~01/2019) History of laparoscopic cholecystectomy (~2014) Social History Smoking Status: Former smoker ROS ROS ED Constitutional Constitutional ED: Denies chills, fever(s) or sweats ENT ENT ED: Denies sore throat Cardiovascular Cardiovascular: Denies chest pain, leg edema, palpitations or racing heartbeat Respiratory/Chest Respiratory/Chest: Denies cough, dyspnea or dyspnea on exertion Gastrointestinal Gastrointestinal: Reports diarrhea; Denies abdominal pain, nausea or vomiting Genitourinary Genitourinary ED: Denies dysuria, hematuria or urinary frequency Musculoskeletal Musculoskeletal: Denies back pain, extremity pain or neck pain Integumentary Denies rash or wounds Neurologic Neurologic: Reports weakness; Denies headache(s) or paresthesias EXAM Physical Exam Const Vital Signs: 10/28/24 08:02 10/28/24 09:04 10/28/24 10:00 Temperature 98.1 F 98.2 F 98.4 F Temperature Source Oral Oral Oral Pulse Rate 71 60 65 Respiratory Rate 16 18 18 Blood Pressure 132/76 H 141/81 H 147/60 H Blood Pressure Mean 94 101 89 Pulse Ox 98 100 99 Oxygen Delivery Method Room Air Room Air Room Air 10/28/24 12:16 10/28/24 13:13 Temperature 98.5 F Temperature Source Pulse Rate 80 68 Respiratory Rate 12 14 Blood Pressure 164/61 H 157/71 H Blood Pressure Mean 95 99 Pulse Ox 97 97 Oxygen Delivery Method Room Air Positive well nourished and well developed General Appearance ED: well developed and NAD HEENT Reports dry mucous membranes normocephalic and atraumatic Mouth ED: Yes dry mucous membranes Mouth: dry mucous membranes Eyes General Eye ED: Yes normal appearance of both eyes Neck full ROM Chest Wall Chest: Negative for tenderness Resp normal respiratory effort and normal air movement Effort and Inspection: symmetric chest movement; Negative for respiratory distress Cardio regular rate, regular rhythm and no murmurs Peripheral Pulses: pulses 2+ throughout GI normal to inspection, nondistended, normoactive bowel sounds and non-tender GI Narrative: Negative left lower quadrant pain no Grajeda's or McBurney's tenderness. Palpation: Negative for guarding or rebound tenderness present Extremity normal to inspection General Extremety ED: Negative for edema or tenderness General Extremity: Negative for edema Neuro oriented x3 and no sensory deficits noted Sensorium / Orientation: awake and alert Skin no rashes or lesions noted and no wounds MDM MDM MDM Narrative Medical decision making narrative: Interventions / MDM: Differential diagnosis: Dehydration, electrolyte abnormalities, history of CKD, diarrhea Diagnosis considered but do not suspect: No clinical colitis My EKG interpretation: N/A Imaging independently reviewed and interpreted by myself: N/A External documents reviewed: N/A Test considered but not ordered:N/A ED course: Dry mucosal membranes are vital stable. IV established for labs and fluids without any electrolyte abnormalities. Will reorder stool studies. Labs obtained stable creatinine 1.64. Normal potassium. Patient was monitored unable to provide a stool sample. She reports has appoint with GI tomorrow at 10 AM. Stool collection kit sent home with the patient. She continue oral fluid for hydration. She can take stool to her GI appointment if she provides a sample for further treatment. Patient understands and agrees with plan. All questions were answered. Re-evaluation: stable Disposition discussed with patient/family/significant other: Patient Case discussed with consulting clinician: N/A This note was generated with InboxQ dictation software. It may contain incorrect words, spelling, and punctuation that were not noted in checking the note before signing. Lab Data Labs: Laboratory Results - last 24 hr 10/28/24 08:58 WBC 5.4 RBC 4.03 L Hgb 13.0 Hct 38.7 MCV 96.0 MCH 32.3 H MCHC 33.6 RDW Std Deviation 42.8 RDW Coeff of Jai 12.1 Plt Count 161 MPV 9.3 Immature Gran % (Auto) 0.200 Neut % (Auto) 61.1 Lymph % (Auto) 27.4 [place] % (Auto) 7.9 Eos % (Auto) 2.8 Baso % (Auto) 0.6 Absolute Neuts (auto) 3.3 Absolute Lymphs (auto) 1.49 Nucleated RBC % 0 Sodium 143 Potassium 3.6 Chloride 104 Carbon Dioxide 25.2 Anion Gap 14 BUN 26 H Creatinine 1.64 H Estim Creat Clear Calc 36.49 L Est GFR (MDRD) Non-Af 34 L BUN/Creatinine Ratio 15.7 Glucose 124 H Calcium 10.0 Magnesium 2.4 H Discharge Plan Triage Chief Complaint: Diarrhea ED Provider: Lex Joshua Dx/Rx/DC Orders Clinical Impression: Diarrhea, CKD (chronic kidney disease) stage 3, GFR 30-59 ml/min, Dehydration Instructions: CKD Dc, ED Diarrhea, Unknown Cause Prescriptions: No Action atorvastatin 20 mg tablet 20 mg PO QHS amlodipine 5 mg tablet 5 mg PO BID carvedilol 3.125 mg tablet 3.125 mg PO BID bumetanide 1 mg tablet 1 mg PO DAILY glipizide 5 mg tablet 5 mg PO DAILY quetiapine 50 mg tablet 50 mg PO QHS divalproex 500 mg tablet,delayed release (DR/EC) 1,000 mg PO QHS Primary Care Provider: Toma Kim NP Referrals: FriendGato DO [Med Staff - Active Staff] - Keep Heather appointment Toma Kim NP, TAXICAB DRIVER-C [Primary Care Provider] - Activity Restrictions/Additional Instructions: You are unable to provide a stool sample in the ED. Your labs are stable. Creatinine 1.6 with GFR of 34. You are sent home with stool collection supplies. If you are able to collect placing refrigerator take to your GI appointment tomorrow to send for further testing. Continue oral fluids for hydration. Print Language: Kyrgyz Disposition Disposition: Home, Self Care Discharge Date/Time: 10/28/24 13:14
[2024-10-28 09:04] VITALS: BP 141/81; PULSE 60; RESP 18; TEMP 36.8; O2SAT 100
[2024-10-28] MEDS: 0.9% Normal Saline (1000mL) 1,000 ML 999 ML IV (09:06)
[2024-10-28 09:11] LABS: Hematocrit 38.7 % (37-47); Hemoglobin 13.0 g/dL (12.0-15.0); Immature Granulocytes Count 0.010 X10^3/uL (0.0-0.0); Mean Corp Hgb Conc 33.6 g/dL (32-36); Mean Corpuscular Volume 96.0 fL (81-99); Mean Platelet Vol. 9.3 fl (6.2-12.0); NRBC Flagged by Analyzer 0 % (0-5); Platelet Count 161 K/mm3 (150-450); RBC Distribution Width CV 12.1 % (11.6-14.6); RBC Distribution Width SD 42.8 fl (35.1-43.9); Red Blood Count 4.03 M/mm3 (4.2-5.4); White Blood Count 5.4 K/mm3 (4.4-11.0)
[2024-10-28 09:51] LABS: Anion Gap 14 (5-15); BUN 26 mg/dL (4-19); BUN/Creat Ratio 15.7 RATIO (10-20); Calcium,Total 10.0 mg/dL (7.6-11.0); Carbon Dioxide 25.2 mmol/L (21.0-32.0); Chloride 104 mmol/L (98-108); Estimated Creatinine Clearance 36.49 ml/min (50-250); Glucose 124 mg/dL (70-99); Magnesium 2.4 mg/dL (1.5-2.2); Potassium 3.6 mmol/L (3.3-5.1)
[2024-10-28 10:00] VITALS: BP 147/60; PULSE 65; RESP 18; TEMP 36.9; O2SAT 99
[2024-10-28 12:16] VITALS: BP 164/61; PULSE 80; RESP 12; O2SAT 97
[2024-10-28 13:13] VITALS: BP 157/71; PULSE 68; RESP 14; TEMP 36.9; O2SAT 97
== END 2024-10-28 13:14 | disposition home or self-care (01) ==
PROVIDERS: Emergency Provider Emergency Medicine; PCP Nurse Practitioner; Visit Provider Emergency Medicine
DX: R19.7 Diarrhea, unspecified (principal); E11.22 Type 2 diabetes mellitus with diabetic chronic kidney disease; N18.30 Chronic kidney disease, stage 3 unspecified; E86.0 Dehydration; Z79.84 Long term (current) use of oral hypoglycemic drugs; Z79.899 Other long term (current) drug therapy; Z87.891 Personal history of nicotine dependence
CPT/HCPCS: 80048; 83735; 85025; 96360; 96361; 99283; A4216

== ENCOUNTER → 2024-10-29 | Outpatient (CLI) | payer MEDICARE, BC, SELFPAY ==
[2024-11-01 08:09] LABS: Calprotectin, Stool 26 ug/g (0-120)
== END | disposition home or self-care (01) ==
LOC: LABSPEC 13:55
PROVIDERS: PCP Nurse Practitioner; Referring Provider Student in an Organized Health Care Education/Training Program; Visit Provider Student in an Organized Health Care Education/Training Program
DX: K58.0 Irritable bowel syndrome with diarrhea (principal)
CPT/HCPCS: 83993; 87177; 87209; 87329

== ENCOUNTER → 2024-11-05 | Outpatient (CLI) | payer MEDICARE, BC, SELFPAY ==
--- NOTE | 2024-11-05 11:54 | RAD_ITS ---
PROCEDURE: ABDOMEN SINGLE VIEW 11/05/2024 REASON FOR EXAM: CONSTIPATION AND LOOSE STOOLS TECHNIQUE: Abdomen, two views COMPARISON: None FINDINGS: Bowel gas: Unremarkable Calcifications: No suspicious calcifications Bones: Degenerative bony changes Other: Age consistent hip and SI joint arthrosis RAD/Abdomen Single View IMPRESSION: No acute findings Degenerative bony changes Reading Location: [id number]
--- NOTE | 2024-11-05 11:54 | RAD_ITS ---
PROCEDURE: ABDOMEN SINGLE VIEW 11/05/2024 REASON FOR EXAM: CONSTIPATION AND LOOSE STOOLS TECHNIQUE: Abdomen, two views COMPARISON: None FINDINGS: Bowel gas: Unremarkable Calcifications: No suspicious calcifications Bones: Degenerative bony changes Other: Age consistent hip and SI joint arthrosis RAD/Abdomen Single View IMPRESSION: No acute findings Degenerative bony changes Reading Location: [id number]
== END | disposition home or self-care (01) ==
LOC: LAB 11:45
PROVIDERS: PCP Nurse Practitioner; Referring Provider Student in an Organized Health Care Education/Training Program; Visit Provider Student in an Organized Health Care Education/Training Program
DX: R19.5 Other fecal abnormalities (principal); K59.00 Constipation, unspecified
CPT/HCPCS: 74018

== ENCOUNTER → 2025-02-25 | Outpatient (CLI) | payer MEDICARE, BC, SELFPAY ==
--- NOTE | 2025-02-25 09:20 | CT_ITS ---
PROCEDURE: EXTREMITY LOWER WITHOUT CONTRA 02/25/2025 REASON FOR EXAM: OSTEOARTHRITIS TECHNIQUE: Procedure Code: CTELWO Modality: CT Procedure: EXTREMITY LOWER WITHOUT CONTRA Coronal and Sagittal reconstruction series were provided. CONTRAST: None One or more dose reduction techniques were used (e.g., Automated exposure control, adjustment of the mA and/or kV according to patient size, use of iterative reconstruction technique). RADIATION DOSE SUMMARY: DLP: 1281 mGycm COMPARISON: None FINDINGS: There is severe tricompartment osteoarthritis, most severe in the lateral compartment. There is subcortical cyst formation, joint space narrowing, and marginal osteophytes. No definite loose bodies are identified. There is a moderate joint effusion. There is a Sharpe's cyst measuring 5.0 x 2.0 cm. Mineralization is normal. Atherosclerotic calcifications are noted. CT/Extremity Lower without Contra IMPRESSION: There is severe tricompartment osteoarthritis, most severe in the lateral alexander rtment. There is a moderate joint effusion. There is a Sharpe's cyst measuring 5.0 x 2.0 cm. Reading Location: [facility]
== END | disposition home or self-care (01) ==
LOC: CT 09:19
PROVIDERS: PCP Nurse Practitioner; Referring Provider Student in an Organized Health Care Education/Training Program; Visit Provider Student in an Organized Health Care Education/Training Program
DX: M17.11 Unilateral primary osteoarthritis, right knee (principal)
CPT/HCPCS: 73700

== ENCOUNTER 2025-03-10 07:38 | Day surgery (SDC) | payer MEDICARE, BC, SELFPAY ==
--- NOTE | 2025-02-24 08:48 | EKG12_ITS ---
Test Reason : PREOP Blood Pressure : */* mmHG Vent. Rate : 78 BPM Atrial Rate : 78 BPM P-R Int : 144 ms QRS Dur : 82 ms QT Int : 376 ms P-R-T Axes : 80 47 52 degrees QTcB Int : 428 ms Normal sinus rhythm Normal ECG Confirmed by KENDRA MCCABE, KEENAN ([id number]), legal editor LUCINDA LOPEZ ([id number]) on 02/24/2025 1:24:45 PM Referred By: Stepan Schrader Confirmed By: KEENAN GARDNER MD
[2025-02-24 09:35] LABS: Hematocrit 34.2 % (37-47); Hemoglobin 11.0 g/dL (12.0-15.0); Immature Granulocytes Count 0.020 X10^3/uL (0.0-0.0); Mean Corp Hgb Conc 32.2 g/dL (32-36); Mean Corpuscular Volume 100.0 fL (81-99); Mean Platelet Vol. 9.4 fl (6.2-12.0); NRBC Flagged by Analyzer 0 % (0-5); Platelet Count 205 K/mm3 (150-450); RBC Distribution Width CV 12.6 % (11.6-14.6); RBC Distribution Width SD 46.2 fl (35.1-43.9); Red Blood Count 3.42 M/mm3 (4.2-5.4); White Blood Count 6.3 K/mm3 (4.4-11.0)
[2025-02-24 10:01] LABS: Albumin, Serum 4.3 g/dL (3.4-4.8); Anion Gap 12 (5-15); BUN 30 mg/dL (4-19); BUN/Creat Ratio 18.9 RATIO (10-20); Calcium,Total 9.9 mg/dL (7.6-11.0); Carbon Dioxide 23.4 mmol/L (21.0-32.0); Chloride 109 mmol/L (98-108); Glucose 125 mg/dL (70-99); Potassium 4.1 mmol/L (3.3-5.1)
[2025-02-24 10:43] LABS: Magnesium 2.2 mg/dL (1.5-2.2)
[2025-03-10] VITALS (13 sets, daily range): BP systolic 110–150; BP diastolic 61–106; PULSE 60–77; RESP 16–18; TEMP 36.1–36.3; O2SAT 96–100; BMI 34.7
[2025-03-10] MEDS: Lactated Ringers 1,000 ML 15 ML IV (08:25)
[2025-03-10] MEDS: Magnesium 1 GM over 15 mins IV (08:26)
--- NOTE | 2025-03-10 09:08 | PCM.PRE.AN2 ---
ASA Classification* ASA Classification ASA Classification: 2 Assessment & Plan Anesthesia* Anesthesia Assessment Anesthesia Assessment: Discussed sedation and/or anesthesia options, risks, benefits, and alternatives with patient/parents/legal guardian/POA. Questions invited. The patient/parents/legal guardian/POA seems to understand and agrees to proceed with anesthesia plan. Reviewed the physical assessment, medical history, allergy history and patient home medications list prior to surgery/procedure/anesthetic and documented any changes. Performed airway and anesthesia risk assessments. Anesthesia Type Anesthesia Type: General, MAC, Spinal and Block History Source History Obtained from:: Patient, Chart and Significant Other (Spouse in the room) Anesthesia Focused Assessment* Temperature: 97.4 F Pulse Rate: 77 Blood Pressure: 121/81 Respiratory Rate: 16 Pulse Ox: 99 Oxygen Delivery Method: Room Air Airway Assessment Mouth opens: >3 cm Mallampati Score: II Teeth Condition: Chipped/Broken and Missing Neck Range of motion (ROM): Full ROM Labs Anesthesia Preop lab: CBC WBC, (4.4-11.0) 6.3 K/mm3 02/24/25, 09:15 RBC, (4.2-5.4) 3.42 M/mm3 L 02/24/25, 09:15 Hgb, (12.0-15.0) 11.0 g/dL L 02/24/25, 09:15 Hct, (37-47) 34.2 % L 02/24/25, 09:15 Plt Count, (150-450) 205 K/mm3 02/24/25, 09:15 CHEMISTRY Potassium, (3.3-5.1) 4.1 mmol/L 02/24/25, 09:15 Sodium, (133-145) 145 mmol/L 02/24/25, 09:15 Magnesium, (1.5-2.2) 2.2 mg/dL 02/24/25, 09:15 Phosphorus, (2.5-4.9) 3.6 mg/dL 11/21/22, 09:39 BUN, (4-19) 30 mg/dL H 02/24/25, 09:15 Creatinine, (0.70-1.20) 1.58 mg/dL H 02/24/25, 09:15 Glucose, (70-99) 125 mg/dL H 02/24/25, 09:15 POC Glucose, (74-106) 105 mg/dL Today, 08:13 COAG Pre-Assessment Diagnosis/Proposed Procedure Planned Operative Procedure(s): ERAS ROBOTIC ASSISTED RIGTH TOTAL KNEE ARTHROPLASTY Anesthesia History 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 When Was Last Pacemaker Check QUESTION #4 FULL TEXT: You/Your Family Experience fever (hyperthermia) with Anesthesia Last Oral Intake Last Oral intake: Last Oral Intake NPO since 19:00 03/10/25 08:07 Meds taken in AM with sips of No 03/10/25 08:07 water? Meds patient instructed to take am of surgery PONV PONV - wood stock blank handler: PONV - wood stock blank handler Female Yes 02/28/25 09:24 HX of Motion Sickness No 02/28/25 09:24 HX of N/V After Surgery No 02/28/25 09:24 Non-Smoker Yes 02/28/25 09:24 Duration of Surgery greater Yes 02/28/25 09:24 than 60 minutes Number of Risk Factors 3 02/28/25 09:24 PONV Score Moderate Risk 02/28/25 09:24 Height & Weight Height & Weight: Anesthesia: Height & Weight Height 5 ft 4 in 03/10/25 08:07 Weight: 91.6 kg 03/10/25 08:07 Body Mass Index (BMI) 34.7 03/10/25 08:07 Respiratory Assessment Respiratory Assessment - wood stock blank handler: Respiratory Tract Infection Hx - wood stock blank handler Hx Respiratory Tract Infection No 02/28/25 09:24 STOP Sleep Apnea STOP Sleep Apnea - wood stock blank handler: STOP Sleep Apnea - wood stock blank handler Hx Hypertension Yes: CONTROLLED WITH MEDS 02/28/25 09:24 Hx Sleep Apnea No 02/28/25 09:24 CPAP BIPAP Do you snore loudly (louder No 02/28/25 09:24 than talking or can be heard Do you often feel tired/ No 02/28/25 09:24 fatigued/ sleepy during daytime? Has anyone observed you stop No 02/28/25 09:24 breathing during sleep? STOP Results Negative 02/28/25 09:24 QUESTION #5 FULL TEXT : Do you snore loudly (louder than talking or can be heard through closed doors)? 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 Specify any problems Hx of Preganancy in last 3 No 02/28/25 09:24 Months Nurse Filling Out Transfusion DSCHRIBER 02/28/25 09:24 & Questions: Date: 02/28/25 02/28/25 09:24 Time: 09:30 02/28/25 09:24 Patient unable to answer at this time (ie. confused, unrespo /Reproduction History /Reproductive History - wood stock blank handler: /Reproductive Hx- wood stock blank handler Hx Now No 02/28/25 09:24 Gestational Age (in weeks): EDC: Hx Hx Para Hx Section SAB No 02/28/25 09:24 Does the father of the baby or his family experience fever w Father of the baby Malignant Hypertension history comment Active Medications Active Medications: Current Medications Generic Name Dose Route Start Last Admin Trade Name Freq PRN Reason Stop Dose Admin Acetaminophen 1,000 mg 03/10/25 09:45 03/10/25 08:26 Acetaminophen 500 Mg Tablet PO 03/10/25 09:46 1,000 mg PREOP ONE Administration Sodium Chloride 77.9 ml/ 0 ml 03/10/25 09:45 Ropivacaine 200 mg/ OPERA.SITE 03/10/25 09:46 Epinephrine HCl 0.6 mg/ INTRAOP ONE Ketorolac Tromethamine 30 mg/ Morphine Sulfate 5 mg Dexamethasone Sodium Phosphate 10 mg 03/10/25 09:45 Dexamethasone 10 Mg/Ml Vial IV 03/10/25 09:46 INTRAOP ONE Gabapentin 600 mg 03/10/25 09:45 03/10/25 08:26 Gabapentin 600 Mg Tablet PO 03/10/25 09:46 600 mg PREOP ONE Administration Magnesium Sulfate 1 gm/ 102 mls @ 408 mls/hr 03/10/25 09:45 03/10/25 08:26 Dextrose IV 03/10/25 09:59 408 mls/hr PREOP ONE Administration Lactated Ringer's 1,000 mls @ 15 mls/hr 03/10/25 08:00 03/10/25 08:25 IV 15 mls/hr .Q48H SERINA Administration Cefazolin Sodium 2 gm/ Sodium 110 mls @ 150 mls/hr 03/10/25 09:45 Chloride IV 03/10/25 10:28 INTRAOP ONE Tranexamic Acid 1,000 mg/ 110 mls @ 660 mls/hr 03/10/25 09:45 Sodium Chloride IV 03/10/25 09:54 INTRAOP ONE Tranexamic Acid 1,000 mg/ 110 mls @ 660 mls/hr 03/10/25 09:45 Sodium Chloride IV 03/10/25 09:54 INTRAOP ONE Insulin Human Lispro 1 - 6 unit 03/10/25 09:45 Insulin Lispro 100 Unit/Ml Insuln.Pen SC Q4H PRN PRN BG>/= 180, SEE PROTOCOL Protocol PFSH Medical History Wears glasses Wears partial dentures Post-menopausal Bipolar disorder Depression Anxiety Diabetes Arthritis History of renal disease High cholesterol Dietary restriction Non-smoker History of edema Neuropathy History of pain when walking Hypertension Bipolar disorder Home Medications ?Medication ?Instructions ?Recorded ?Last Taken ?Type amlodipine 5 mg tablet 5 mg PO DAILY 10/28/24 03/10/25 06:30 History atorvastatin 20 mg tablet 20 mg PO QHS cholesterol 10/28/24 10/27/24 History bumetanide 1 mg tablet 1 mg PO DAILY 10/28/24 03/10/25 06:30 History carvedilol 3.125 mg tablet 3.125 mg PO DAILY 10/28/24 03/10/25 06:30 History divalproex 500 mg tablet,delayed 1,000 mg PO QHS 10/28/24 10/27/24 History release glipizide 5 mg tablet 5 mg PO DAILY 10/28/24 03/10/25 06:30 History quetiapine 50 mg tablet 50 mg PO QHS 10/28/24 10/27/24 History wheat dextrin 1 gram tablet 1 g PO DAILY 01/14/25 Unknown History (Benefiber (wheat dextrin)) Allergy/AdvReac Type Severity Reaction Status Date / Time No Known Allergies Allergy Verified 03/10/25 08:05 Family History Mother Diabetes Hypertension Depression Sister Breast cancer Father Cancer prostate Diabetes Hypertension Grandmother Diabetes Grandfather CVA (cerebral vascular accident) Surgical History Hx of right cataract extraction Hx of left cataract extraction History of bunionectomy of right great toe History of carpal tunnel surgery of right wrist History of carpal tunnel surgery of left wrist History of colonoscopy (~01/2019) History of laparoscopic cholecystectomy (~2014) Social History Smoking Status: Former smoker Review of Systems (Anesthesia) ROS Narrative System reviewed and no additional complaints, except as documented.
[2025-03-10] MEDS: Midazolam 2 MG/2 ML Syringe IV (10:15)
[2025-03-10] MEDS: Cefazolin 1 GM/5 ML Vial 2 GM IV (10:37)
[2025-03-10] MEDS: Lidocaine 1% (5 ml sdv) 5 ML Vial 2 ML IV (10:44)
[2025-03-10] MEDS: TRANEXAMIC ACID 1,000 MG/10 ML ML 2000 MG IV (11:45)
[2025-03-10] MEDS: JPS (Morphine 10mg/ml) OPERA.SITE (12:07)
--- NOTE | 2025-03-10 12:30 | PCM.OPRPT ---
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 Care Attendant School: [employer] Tasks completed by first aid trainer: Opening & closing, Implanting device, Hemostasis: Electrocautery and Retracting Type of Anesthesia: Spinal/Supplemental RN Documented Start/Stop Times: Operation Date: 03/10/25 09:45 Case Time Into Pre-Op 03/10/25 07:46 Anesthesia Start 03/10/25 10:36 Into Room 03/10/25 10:36 Procedure Start 03/10/25 10:55 Procedure End 03/10/25 12:08 Anesthesia End 03/10/25 12:13 Out of Room 03/10/25 12:13 Into Recovery 03/10/25 12:15 Procedure Start Time: 10:55 Procedure Stop Time: 12:08 Select all DRAINS/GRAFTS/IMPLANTS that apply: Implanted device Implanted device details: [employer] triathlon CR size #3 right press-fit, press-fit size #4 tibial component, triathlon X.3 tibial bearing insert CS size four 9 mm Estimated Blood Loss: 50 cc Specimen collected: No Description of surgery: Patient was identified in the preoperative holding area by name, medical record number, and date of . Informed consent was confirmed with the patient. The operative knee was marked with a surgical marker. At time of her procedure, patient brought to the operative suite and positioned supine a standard operating table. Anesthesia then administered a spinal anesthetic. She was then repositioned in the supine position with all bony prominences well-padded. We then placed a well-padded pneumatic tourniquet on the right upper thigh. The right upper extremity was brought across patient's chest throughout the procedure. We then prepped and draped the right lower extremity in a normal, sterile orthopedic fashion. We performed a timeout with all parties in attendance in agreement with the side, site, operation be performed. No concerns were voiced and would like to proceed with surgery. 2 g Ancef was administered prior to the incision by anesthesia staff as well as 1 g IV TXA. First I exsanguinated the right lower extremity with a Esmarch bandage. Tourniquet was inflated to 280 mmHg which remained inflated for 46 minutes. Esmarch was removed. I planned a standard midline approach to the right knee approximately 15 cm in length. Skin was sharply incised with a 10 blade scalpel developing full-thickness layers down to the retinaculum. Layers were developed identifying the VMO. I then planned a standard medial parapatellar arthrotomy performed in flexion. The anterior horn of the medial meniscus was released. Hoffa's fat pad was then released. I then everted the patella in extension and brought the knee into 90 degrees of flexion. The anterior horn of the lateral meniscus was then released. The ACL was split in its mid substance with a 10 blade. We then brought the knee back into extension. I closely examined the patella. There is a small inferior posterior osteophyte which was resected with a rongeur otherwise minimal chondromalacia was noted. I elected to do believe the patella agua caliente without resurfacing. I then placed pins in the metaphyseal distal femur medial to lateral for the Yunior arrays. In similar fashion, I made a 2 cm incision approximatelrighy a handsbreadth distal to the tibial tubercle along the medial aspect of the tibia, drilling 2 bicortical pins for the tibial array. The knee was brought into flexion. The patella was subluxed laterally but not everted. Medial lateral retractors were placed. We then utilized the [employer] software to confirm our planned surgical procedure and oriented with the patient's osseous anatomy. All checks with the [employer] system were confirmed. Planning was then performed on software for our planned balance. The knee was quite flexible and after osteophyte resection, standard resections yielded a well-balanced knee. Sawblade was then brought in. I first started with the tibial cut, ensuring protection of the MCL and patellar tendon. A tibial wafer was then excised. I then proceeded to make the posterior femoral, anterior, anterior chamfer cuts with the same blade. Ligaments were protected with [employer] retractors. Sawblade was then exchanged to perform the distal femoral and posterior chamfer cuts. The robot was then removed from the surgical field. Remaining loose bone and meniscus was excised carefully. Posterior osteophytes were removed from the distal femur with a curved osteotome and rongeur. Trial components were then placed. Balance was excellent in both extension and 90 degrees flexion. No mid flexion instability was apparent. Tracking was excellent. We then marked for tibial baseplate. Distal femoral pegs were drilled. Tibial keel was punched. Trials were removed. Periarticular block was administered. The wound was copiously irrigated with normal saline solution. Tourniquet was deflated. Hemostasis was excellent. An additional 1 g TXA was administered IV. Press-fit components were then impacted in standard fashion with excellent time 0 purchase. I selected a size 9 mm polyethylene which was placed and impacted per doctor of chiropractic recommendations. Final components appeared very well balanced with excellent range of motion. There is no significant remaining flexion contracture. The wound was copiously irrigated with normal saline solution. Capsule was closed watertight with #1 strata fix barbed suture. Deeper bursal layer was reapproximated with 0 Vicryl suture. Dermis was reapproximated buried interrupted 2-0 Vicryl suture. Skin was finally reapproximated luanne. Patient tolerated the procedure well without apparent complication. She was safely awakened in the operative suite, transferred to her hospital bed and subsequently to PACU in stable condition. Need for skilled fire control assistant: Marcelle Wright PA-C was critical to the outcome of the case. During the course of the procedure the physician fire control assistant played a vital role. Her intimate knowledge of my steps in the procedure aided in safe and expedient completion of the procedure. The PA played a vital role in positioning particularly in obtaining the appropriate positioning. The PA was also vital in the retraction of soft tissues during the exposure and projecting vital structures. The PA was also vital and protecting soft tissues during times of bony cuts. She also played a vital role in closure with my direct supervision. The PA was also important during reduction and dislocation of the joint and trials intraoperatively. Post Operative Plan: Anticipate same-day discharge today after meeting same-day surgery criteria and being cleared by physical therapy. Outpatient physical therapy to start in 2 to 3 days. Weightbearing: Range of motion and weightbearing as tolerated right lower extremity. Antibiotics: Ancef prior to discharge DVT Prophylaxis: Multimodal with 81 mg aspirin, SCDs, JESSICA hose and early mobilization Hyman: None Dressing: Maintain silver dressing x5 days X-Rays: 2-week x-rays in the office. Follow-up: 2 weeks in office for staple removal Surgical Findings: Severe right knee osteoarthritis. Maintained cartilage of the patella. Passively correctable valgus deformity. Good patellofemoral tracking after final implantation. Complications Complications: No Admit VTE Documentation VTE Present on Admission: No VTE Mechan Device Prophylaxis: SCD's and Thigh High JESSICA Phil VTE Pharm Prophylaxis ordered?: No
--- NOTE | 2025-03-10 12:35 | RAD_ITS ---
PROCEDURE: KNEE 1 OR 2 VIEWS 03/10/2025 REASON FOR EXAM: POST OP TECHNIQUE: Procedure Code: RADK Modality: DX Procedure: KNEE 1 OR 2 VIEWS Right knee 3 views COMPARISON: None FINDINGS: There is a total knee prosthesis in position with no visible hardware failure or loosening. Surgical luanne are noted with soft tissue air consistent with recent surgery. Mineralization is normal. There is no visible atherosclerosis. RAD/Knee 1 or 2 Views IMPRESSION: Hardware in position. Reading Location: [facility]
--- NOTE | 2025-03-10 13:49 | PCM.POSTANE2 ---
Anesthesia Postop Eval I Sum Anesthesia Postop Eval I Summary Anesthesia Postop Eval I Summary: Anesthesia Postop Eval I: Assessment Summary Airway patent Spontaneous unlabored respirations Mental status nausea Vomiting Anesthesia Postop Eval I: Fluid Summary Crystalloid volume administer (ml) Colloids volume administered ( ml) Blood Product volume administered (ml) Total IV fluid infused Anesthesia Postop Eval I: Summary Notes Anesthesia Complication Anesthesia Complication Comment: Post-operative progress note Anesthesia: Postop Eval II Evaluation Mental status: Awake and Calm Pain Level: 1 nausea: No Vomiting: No Complications Anesthesia Complication: No
--- NOTE | 2025-03-10 13:52 | PCM.POST.ANE ---
Anesthesia: Postop Eval I Current Vital Signs Temperature: 96.9 F Pulse Rate: 68 Blood Pressure: 110/67 Respiratory Rate: 16 Pulse Ox: 100 Oxygen Delivery Method: Nasal Cannula Oxygen Flow Rate (L/min): 4 Assessment Airway patent: Yes Spontaneous unlabored respirations: Yes Mental status: Awake and Calm nausea: No Vomiting: No Anesthesia Complication: No Fluid Hydration Crystalloid volume administer (ml): 1,200 Total IV fluid infused: 1,200 Progress Note Post-operative progress note: Late entry: assessment time 1225 Anesthesia document: Postop Eval 1 completed: Yes
[2025-03-10] MEDS: Cefazolin 1 GM/50 ML BAG IV (15:21)
--- NOTE | 2025-03-10 16:30 | SUR.PHASEII ---
therapy in with pt, assisted x2 to BS, took pt on a walk with physical therapy. assisted back to bed.
== END 2025-03-10 17:36 | disposition home or self-care (01) ==
LOC: SDC 07:40 → AC 07:41
PROVIDERS: Anesthesiology; PCP Nurse Practitioner; Referring Provider Student in an Organized Health Care Education/Training Program; Visit Provider Student in an Organized Health Care Education/Training Program
PROC: 0SRC0JZ Replacement of Right Knee Joint with Synthetic Substitute, Open Approach (ICD-10-PCS; CPT 27447; principal; 2025-03-10 09:15)
DX: M17.11 Unilateral primary osteoarthritis, right knee (principal); F31.9 Bipolar disorder, unspecified; E11.22 Type 2 diabetes mellitus with diabetic chronic kidney disease; N18.9 Chronic kidney disease, unspecified; I12.9 Hypertensive chronic kidney disease with stage 1 through stage 4 chronic kidney disease, or unspecified chronic kidney disease; K21.9 Gastro-esophageal reflux disease without esophagitis
CPT/HCPCS: 27447; 01402; 36415; 73560; 80048; 82040; 82962; 83036; 83735; 85025; 87081; 93005; 97162; C1776; J3475